=== PATIENT | male | born 1990 | race Caucasian/White ===

== ENCOUNTER 2016-10-13 19:18 | Emergency (ER) | payer OTHER ==
--- NOTE | ~2016-10-13 | EKG ---
PATIENT: LUZ NORRIS UNIT #: [id number] Ventricular Rate: 85 BPM Atrial Rate: 85 BPM P-R Interval: 192 ms QRS Duration: 106 ms Q-T Interval: 372 ms QTC Calculation(Bezet): 442 ms P Alvin: 41 degrees Calculated R Alvin: 65 degrees Calculated T Alvin: 61 degrees Diagnosis Line: Normal sinus rhythm Diagnosis Line: Nonspecific T wave abnormality Diagnosis Line: Abnormal ECG Diagnosis Line: No previous ECGs available Diagnosis Line: Confirmed by MALIKA PATTERSON MD ([id number]) on Diagnosis Line: 10/14/2016 12:09:32 AM INTERPRETING MD: YESENIA MURILLO
[2016-10-13 19:21] LABS: URINE SOURCE CLEAN CATCH
[2016-10-13 19:29] LABS: BASOPHIL% 0.1 % (0-2.5); HEMATOCRIT 42.6 % (38.0-50.0); HEMOGLOBIN 13.9 gm/dL (13.0-16.0); LYMPHOCYTE# 1.6 X10e3 (1.0-3.5); LYMPHOCYTE% 15.9 % (17.0-45.0); MEAN CORPUSCULAR HGB CONC 32.6 g/dL (30-36); MONOCYTE# 0.8 X10e3 (0-1.0); MONOCYTE% 8.3 % (3.0-12.0); NEUTROPHIL# 7.4 X10e3 (1.5-7.1); NEUTROPHIL% 75.7 % (40-75); PLATELET COUNT 143 X10e3 (140-420); RED BLOOD COUNT 4.64 X10e (3.90-5.60); RED CELL DISTRIBUTION WIDTH 13.9 % (11.0-15.5); WHITE BLOOD COUNT 9.8 X10e3 (4.0-10.5)
[2016-10-13 19:30] LABS: DIFF IND NO
[2016-10-13 19:32] LABS: URINE APPEARANCE CLEAR; URINE BILIRUBIN NEG (NEG); URINE BLOOD NEG (NEG); URINE COLOR YELLOW; URINE GLUCOSE NEG (NEG); URINE KETONE NEG (NEG); URINE LEUKOCYTE ESTERASE NEG (NEG); URINE NITRATE NEG (NEG); URINE PROTEIN NEG (NEG); URINE SPECIFIC GRAVITY 1.011 (1.003-1.035); URINE UROBILINOGEN 0.2 MG/DL (NEG)
[2016-10-13 19:35] LABS: CULTURE INDICATED? NO
[2016-10-13 19:42] LABS: AMPHETAMINE NEG (NEG); BARBITURATES NEG (NEG); BENZODIAZEPINES POS (NEG); COCAINE NEG (NEG); MARIJUANA NEG (NEG); OPIATES NEG (NEG); TRICYCLIC ANTIDEPRESSANTS NEG (NEG); U METHADONE NEG (NEG)
[2016-10-13 20:05] LABS: ALBUMIN SERUM 3.8 g/dL (3.5-5.0); ALKALINE PHOSPHATASE 59 U/L (32-92); ALT (SGPT) 87 U/L (10-40); AST (SGOT) 36 U/L (10-42); BILIRUBIN, DIRECT 0.1 mg/dL (0.0-0.2); BILIRUBIN,INDIRECT 0.4 mg/dL (0.0-0.9); BILIRUBIN,TOTAL 0.5 mg/dL (0.2-2.0); BLOOD UREA NITROGEN 5 mg/dL (9-23); BUN/CREATININE RATIO 4.16; CALCIUM SERUM 8.7 mg/dL (8.4-10.2); CARBON DIOXIDE 28 mmol/L (22-31); CHLORIDE 103 mmol/L (100-111); CREATININE SERUM 1.2 mg/dL (0.6-1.4); GLOM FILT RATE Estimated ABOVE60 mL/min (>60); GLUCOSE FASTING 87 mg/dL (70-110); PROTEIN TOTAL SERUM 6.5 g/dL (6.0-8.3); SALICYLATE <4.0 mg/dL; SODIUM 139 mmol/L (135-145)
[2016-10-13 20:06] LABS: ACETAMINOPHEN <10 ug/mL; ALCOHOL BLOOD <5 mg/dL (0)
== END 2016-10-14 02:15 | disposition home or self-care (01) ==
LOC: CED 19:18
PROVIDERS: Emergency Medicine
DX: T42.4X1A Poisoning by benzodiazepines, accidental (unintentional), initial encounter (principal); F13.10 Sedative, hypnotic or anxiolytic abuse, uncomplicated; Z88.0 Allergy status to penicillin
CPT/HCPCS: 36415; 80048; 80076; 80307; 81003; 84484; 85025; 93005; 99284; 99285; G0480

== ENCOUNTER 2016-10-14 21:46 | Inpatient (IN) | payer OTHER ==
--- NOTE | ~2016-10-14 | PN ---
Unit #: [id number] #: [id number] Patient: LUZ OLGUIN [id number] [facility] [address] [place] [address] [id number] MR#: [id number] NAME: LUZ OLGUIN ROOM: [facility] Age: 25 Sex: M Admission Date: 10/14/2016 : 1990 Attending Physician: Noe Moulton M.D. Admitting Physician: Noe Moulton M.D. Primary Care Physician: Primary Care Physician Daija HANKS NOTES DATE OF SERVICE: 10/15/2016 DISCUSSION Luz Olguin is a 25-year-old male, seen on 10/15/2016. The patient interviewed, chart reviewed, and obtained information from nursing staff. The patient was compliant and cooperative. Mood was sad, dysphoric, flat, withdrawn, isolative, guarded. MENTAL STATUS EXAMINATION Attention span and concentration, poor. Speech, slow. Thought process, circumstantial. Association, guarded and paranoid. Recent and remote memory, poor. Insight and judgment, poor. DIAGNOSES 1. Polysubstance abuse. 2. Mood disorder, not otherwise specified. ASSESSMENT AND PLAN Advised to continue with current medication and therapeutic protocol. We will monitor response to medication and make further adjustment of medication. Dictated by... Britta Mcginnis/izabella TD: 10/15/2016 19:23 JOB #: [id number] BRIANNA HANKS NOTES X Noe Moulton MD PROGRESS NOTE
--- NOTE | ~2016-10-14 | PA ---
Unit #: [id number] #: [id number] Patient: LUZ OLGUIN [id number] [facility] [address] [place] [address] [id number] MR#: [id number] NAME: LUZ OLGUIN ROOM: [facility] Age: 25 Sex: M Admission Date: 10/14/2016 : 1990 Date of Assessment: Attending Physician: Noe Moulton M.D. Admitting Physician: Noe Moulton M.D. Primary Care Physician: Primary Care Physician No PSYCHIATRIC ASSESSMENT INFORMANTS The patient's reliability, fair; chart reliability, good. CHIEF COMPLAINT Anxiety attack. HISTORY OF PRESENT ILLNESS Luz Olguin is a 25-year-old male, admitted with the above-mentioned complaint. The patient seen very anxious, nervous, having difficulty answering question, lot of thought blocking. The patient has a history of previous treatment at [facility] and [facility]. The patient was living at home with mother, brothers 19 and 22. The patient reported he came to [facility] to detox, so that he can get back into [facility] program. The patient reported that he was released from [facility] thought he could go to [facility]. The patient reported that he has been using benzodiazepine and ordering online. The patient reported that he has anxiety and panic attack. The patient denied any suicidal or homicidal ideation, but very guarded, paranoid, withdrawn, anxious, nervous. The patient reported tobacco use, age of onset 10; alcohol, age of onset 11; crack cocaine in the past; opioid, age of onset 14, prescription medication, age of onset 25 with benzodiazepine. The patient reported history of blackout, withdrawal symptom, but no IV drug use. No history of any HIV or hepatitis. The patient reported having muscle cramping. Needing inpatient admission at this time for psychiatric stabilization. PAST PSYCHIATRIC HISTORY Remarkable for history of previous treatment at the [place] [facility] inpatient and residential program at [facility]. FAMILY HISTORY/SOCIAL HISTORY The patient's family psychiatric illness is remarkable for history of substance abuse in uncle, cousin, and aunt. No known history of any abuse. MEDICAL HISTORY Unremarkable for any chronic medical illness. Musculoskeletal; muscle strength and tone, no atrophy or abnormal movement. Gait normal. MEDICATION HISTORY None. ALLERGIES No known drug allergies. Unit #: [id number] #: [id number] Patient: LUZ OLGUIN SUBSTANCE ABUSE HISTORY Please see above. REVIEW OF SYSTEMS HEENT: Eyes, clear. Ears, nose, mouth, and throat; clear. CARDIOVASCULAR: Unremarkable. RESPIRATORY: Unremarkable. GI: Unremarkable. : Unremarkable. SKIN: Unremarkable. LYMPH NODE: Unremarkable. NEUROLOGIC: Unremarkable. ENDOCRINE: Unremarkable. HEMATOLOGIC: Unremarkable. ALLERGIC/IMMUNOLOGIC: Unremarkable. MUSCULOSKELETAL: Muscle strength and tone, no atrophy or abnormal movement. Gait normal. MENTAL STATUS EXAMINATION CONSTITUTIONAL: Measurement of vital signs; temperature 98.1, pulse 79, respirations 16, blood pressure 127/69. Height 5 feet 11 inches, weight 79 pounds. GENERAL APPEARANCE: The patient dressed casually. The patient did not show any facial deformity. MUSCULOSKELETAL: Muscle strength and tone, no atrophy or abnormal movement. Gait normal. PSYCHIATRIC EXAMINATION Description of speech; slow, long pauses. Description of thought process, circumstantial. Description of association; guarded, paranoid, mood lability, anxiety. Denied any suicidal or homicidal ideation, but guarded and paranoid. Description of the patient's judgment; concerning everyday activity, poor. Social situation, poor. Concerning psychiatric condition, poor. Complete mental status examination; oriented in time, place, and person. Recent and remote memory, fair. Attention span and concentration, poor. Language, able to name object and repeat phrases. Fund of knowledge, fair. Insight and judgment, fair to poor. ASSETS AND LIABILITIES Assets; the patient is articulate, able to take care of his ADL. Liability; history of anxiety and depression. ADMITTING DIAGNOSES Psychiatric: 1. Mood disorder, not otherwise specified, F32.9. 2. Anxiety disorder, not otherwise specified, F41.9. 3. Sedative-hypnotic use disorder, severe, F13.20. Secondary diagnosis: Deferred. Medical diagnosis: None. Stressors: Psychosocial stressors. PSYCHIATRIC PLAN AND TREATMENT GOAL 1. Advised to admit the patient on the inpatient unit. Provide safe, Unit #: [id number] #: [id number] Patient: LUZ OLGUIN supportive, and structured environment. 2. Ordered labs; CBC, CMP, UA, and UDS. 3. Precaution for aggression and psychosis, detox monitoring, detox protocol. 4. The patient to attend all the programing on the inpatient unit, group therapy, individual therapy, medication management. If needed, consider further adjustment of medication. The patient was started on a combination of Vistaril, Celexa, Desyrel for anxiety, depression, and sleep respectively. The patient to attend all the programing. Treatment goal to attain euthymic mood, gain insight into his problem, and learn coping skills. DISCHARGE PLAN Plan to stabilize the patient and consider followup in outpatient program. ESTIMATED LENGTH OF STAY 3 to 5 days. Dictated by... Britta Mcginnis/izabella TD: 10/16/2016 08:21 JOB #: [id number] PSYCHIATRIC ASSESSMENT X Noe Moulton MD PSYCHIATRIC ASSESSMENT
--- NOTE | ~2016-10-14 | DS ---
Unit #: [id number] #: [id number] Patient: LUZ NORRIS [id number] [facility] [address] [place] [address] [id number] I MR#: [id number] NAME: LUZ NORRIS ROOM: [facility] Age: 25 Sex: M Admission Date: 10/14/2016 : 1990 Discharge Date: 10/17/2016 Attending Physician: Noe Moulton M.D. Primary Care Physician: Primary Care Physician No DISCHARGE SUMMARY REASON FOR ADMISSION Anxiety, detox. DIAGNOSTIC STUDIES LABORATORY RESULTS: Remarkable for urine drug screen positive for benzodiazepine. ALT 75. HOSPITAL COURSE The patient was admitted to inpatient unit on 10/14/2016 and discharged on 10/17/2016. The patient was treated on the inpatient unit with chemical dependency group, expressive therapy, psychoeducation, and psychotherapy. The patient responded well with the above modalities of treatment and following medications. DISCHARGE MEDICATIONS Trazodone 50 mg at bedtime for sleep, Celexa 20 mg daily for depression, Vistaril 25 mg t.i.d. for anxiety, and Zyprexa 5 mg at bedtime for mood stabilization. DISCHARGE DIAGNOSES Psychiatric: 1. Mood disorder, not otherwise specified, F32.9. 2. Anxiety disorder, not otherwise specified, F41.9. 3. Sedative-hypnotic use disorder, severe. Secondary diagnosis: Deferred. Medical diagnosis: None. Stressors: Psychosocial stressors. DISCHARGE INSTRUCTIONS The patient is to follow up in outpatient clinic as per social science teacher. CONDITION ON DISCHARGE The patient was pleasant and cooperative. Denied any psychotic symptom or any suicidal ideation. PROGNOSIS Guarded. DIET AND ACTIVITY As tolerated. Unit #: [id number] #: [id number] Patient: LUZ NORRIS Dictated by... Britta McginnisC/izabella TD: 10/17/2016 20:52 JOB #: [id number] DISCHARGE SUMMARY X Noe Moulton MD X DISCHARGE SUMMARY
--- NOTE | ~2016-10-14 | HP ---
Unit #: [id number] #: [id number] Patient: LUZ NORRIS [id number] [place] [address] [id number] MR#: [id number] NAME: LUZ NORRIS ROOM: [facility] Age: 25 Sex: M Admission Date: 10/14/2016 : 1990 Attending Physician: Noe Moulton M.D. Admitting Physician: Noe Moulton M.D. Primary Care Physician: Primary Care Physician No HISTORY AND PHYSICAL HISTORY OF PRESENT ILLNESS Luz is a 25 year old admitted to [facility] because of his abuse of benzodiazepines. PAST MEDICAL HISTORY 1. Long history of drug use to include benzodiazepines 2. History of undescended testicle PAST SURGICAL HISTORY 1. Release of an undescended testicle 2. Pilonidal cyst resection ALLERGIES Penicillin SOCIAL HISTORY He smokes less than one pack per day. Denies alcohol. Admits to a history of illicit drug use to include abusing benzodiazepines. FAMILY HISTORY Medically noncontributory. REVIEW OF SYSTEMS CONSTITUTIONAL: No fever or chills. HEENT: Denies any sore throat, ear pain or runny nose. CARDIOVASCULAR: Denies chest pain, irregular heart rhythm or palpitations. CHEST: Denies shortness of breath or cough. No hemoptysis. GASTROINTESTINAL: Denies nausea, vomiting, diarrhea or chronic constipation. ENDOCRINE: Denies history of increased thirst or urination. No recent significant weight loss or gain. GENITOURINARY: Denies dysuria, frequency, or hematuria. SKIN: Denies any rashes. HEMATOLOGIC: Denies history of increased bleeding or bruising. MUSCULOSKELETAL: Denies any hot, swollen joints. No generalized muscle pain. NEUROLOGIC: Denies problems with vision or speech. No frequent, severe headaches. No numbness, tingling or weakness in any extremities. Denies loss of bladder or bowel control. CURRENT MEDICATIONS 1. Detox protocol Unit #: [id number] #: [id number] Patient: LUZ NORRIS 2. Zyprexa 5 mg q.h.s. PHYSICAL EXAMINATION GENERAL: Alert, well-nourished, in no apparent distress. VITAL SIGNS: Blood pressure 126/70, heart rate 80, respirations 16, temperature 98.6. WEIGHT: 198 pounds. HEIGHT: 5'11". SKIN: Warm and dry without rash or lesion. HEENT: Normocephalic. TMs not viewed. Oral and nasal passages clear. Conjunctivae clear. Pupils equal, round and reactive to light and accommodation. Extraocular movements intact. NECK: Supple without lymphadenopathy or thyromegaly. HEART: Regular rate and rhythm without murmur. LUNGS: Clear. ABDOMEN: Soft, nontender. : Not done. EXTREMITIES: No evidence of cyanosis, clubbing or edema. Moves all extremities without focal deficit. NEUROLOGICAL: Grossly within normal limits. Cranial Nerves: II: Visual garrett are intact. III, IV AND : Extraocular movements are intact. Pupils are equal, round and reactive to light. V: Facial sensation is grossly normal. VII: Facial movements and expression are normal. VIII: Auditory acuity grossly intact. IX, X: Uvula is midline. Phonation is normal. XI: Patient shrugs shoulders and turns head normally. XII: Tongue protrudes in the midline. Sensory and Motor Function: Sensory and motor sensation is grossly normal. Motor: moves all extremities well. Coordination: Gait is normal. Deep Tendon Reflexes: Intact. IMPRESSION Psychiatric admission RECOMMENDATIONS PSYCHIATRIC: Per psychiatrist. MEDICAL: I see no contraindications to participating in facility's activities. MEDICAL PROGNOSIS Good. MEDICAL CONDITION Stable. Dictated by... Hiral Rubin P.A.-C. for Britta Rod/lito TD: 10/16/2016 00:41 JOB #: [id number] Unit #: [id number] #: [id number] Patient: LUZ NORRIS HISTORY AND PHYSICAL X Hiral Rubin HISTORY AND PHYSICAL
--- NOTE | ~2016-10-14 | PN ---
Unit #: [id number] #: [id number] Patient: LUZ OLGUIN [id number] [facility] [address] [place] [address] [id number] MR#: [id number] NAME: LUZ OLGUIN ROOM: [facility] Age: 25 Sex: M Admission Date: 10/14/2016 : 1990 Attending Physician: Noe Moulton M.D. Admitting Physician: Noe Moulton M.D. Primary Care Physician: Primary Care Physician Daija HANKS NOTES DATE OF SERVICE: 10/16/2016 DISCUSSION Luz Olguin is a 25-year-old male, seen on 10/16/2016. The patient interviewed, chart reviewed, and obtained information from nursing staff. The patient is still having depressive symptom, anxiety symptom, withdrawn, isolative, guarded, compliant with medication. The patient's complete review of systems unremarkable. MENTAL STATUS EXAMINATION General appearance, the patient dressed casually. Attention span and concentration, fair. Oriented in place and person. Mood and affect were sad and dysphoric. Speech, monotone. Thought process, concrete. The patient is still anxious, nervous, sad, depressed, withdrawn, isolative, guarded. Recent and remote memory, poor. Insight and judgment, poor. DIAGNOSES 1. Mood disorder, not otherwise specified. 2. Anxiety disorder, not otherwise specified. 3. History of polysubstance abuse. ASSESSMENT AND PLAN Advised to continue with current medication and therapeutic protocol. We will monitor response to medication and make further adjustment of medication. Dictated by... Britta Mcginnis/izabella TD: 10/16/2016 23:02 JOB #: [id number] Unit #: [id number] #: [id number] Patient: LUZ OLGUIN MARIA LUZAFRICA LATONYA NOTES X Noe Moulton MD PROGRESS NOTE
[2016-10-15 12:25] LABS: HEMATOCRIT 44.5 % (38.0-50.0); HEMOGLOBIN 14.4 gm/dL (13.0-16.0); LYMPHOCYTE# 2.5 X10e3 (1.0-3.5); LYMPHOCYTE% 37.9 % (17.0-45.0); MEAN CELL VOLUME 91.8 FL (83-96); MEAN CORPUSCULAR HEMOGLOBIN 29.8 PG (28-34); MEAN CORPUSCULAR HGB CONC 32.4 g/dL (30-36); MEAN PLATELET VOLUME 10.1 FL (6.5-11.5); MONOCYTE# 0.7 X10e3 (0-1.0); MONOCYTE% 9.9 % (3.0-12.0); NEUTROPHIL# 3.4 X10e3 (1.5-7.1); NEUTROPHIL% 52.2 % (40-75); PLATELET COUNT 161 X10e3 (140-420); RED BLOOD COUNT 4.85 X10e (3.90-5.60); RED CELL DISTRIBUTION WIDTH 13.9 % (11.0-15.5); WHITE BLOOD COUNT 6.6 X10e3 (4.0-10.5)
[2016-10-15 12:29] LABS: URINE APPEARANCE CLEAR; URINE BILIRUBIN NEG (NEG); URINE BLOOD NEG (NEG); URINE COLOR YELLOW; URINE GLUCOSE NEG (NEG); URINE KETONE NEG (NEG); URINE LEUKOCYTE ESTERASE TRACE (NEG); URINE NITRATE NEG (NEG); URINE PH 7.5 (5-8); URINE PROTEIN TRACE (NEG); URINE SPECIFIC GRAVITY 1.017 (1.003-1.035)
[2016-10-15 12:30] LABS: URBCS1 AUWI 0-2 /[HPF] (0-2); URINE BACTERIA AUWI NEG (NEGATIVE); URINE SQUAMOUS EPITHELIAL CELL NONE SEEN /[HPF]; UWBCS1 AUWI 0-2 (0-5)
[2016-10-15 12:41] LABS: DIFF IND NO
[2016-10-15 12:50] LABS: ALKALINE PHOSPHATASE 57 U/L (32-92); ALT (SGPT) 75 U/L (10-40); AST (SGOT) 40 U/L (10-42); BILIRUBIN,TOTAL 0.6 mg/dL (0.2-2.0); BLOOD UREA NITROGEN 7 mg/dL (9-23); BUN/CREATININE RATIO 6.36; CALCIUM SERUM 9.3 mg/dL (8.4-10.2); CARBON DIOXIDE 26 mmol/L (22-31); CHLORIDE 102 mmol/L (100-111); CREATININE SERUM 1.1 mg/dL (0.6-1.4); GLOM FILT RATE Estimated ABOVE60 mL/min (>60); GLUCOSE FASTING 74 mg/dL (70-110); PROTEIN TOTAL SERUM 6.5 g/dL (6.0-8.3); SODIUM 138 mmol/L (135-145)
[2016-10-15 12:52] LABS: THYROID STIMULATING HORMONE 1.51 uIU/ml (0.34-5.60)
[2016-10-15 12:57] LABS: AMPHETAMINE NEG (NEG); BARBITURATES NEG (NEG); BENZODIAZEPINES POS (NEG); COCAINE NEG (NEG); MARIJUANA NEG (NEG); OPIATES NEG (NEG); TRICYCLIC ANTIDEPRESSANTS NEG (NEG); U METHADONE NEG (NEG)
[2016-10-15 12:59] LABS: FREE THYROXIN (T4) 0.87 ng/dL (0.58-1.64)
== END 2016-10-17 09:40 | disposition home or self-care (01) | DRG 885 ==
LOC: P1E 21:46
PROVIDERS: Psychiatry & Neurology Psychiatry
DX: F31.9 Bipolar disorder, unspecified (principal); F13.20 Sedative, hypnotic or anxiolytic dependence, uncomplicated; F41.9 Anxiety disorder, unspecified; Z88.0 Allergy status to penicillin; F17.200 Nicotine dependence, unspecified, uncomplicated; F19.10 Other psychoactive substance abuse, uncomplicated; F39 Unspecified mood [affective] disorder
CPT/HCPCS: 80053; 80307; 81003; 84439; 84443; 85025; 86592